=== PATIENT | male | born 1995 | race African-American/Black ===

== ENCOUNTER 2016-08-21 22:26 | Emergency (ER) | payer SELFPAY ==
[2016-08-22 03:40] LABS: BASOPHILS 0.3 %; BASOPHILS ABSOLUTE 0.03 10/3/uL (0.0-0.16); EOSINOPHILS 3.3 %; EOSINOPHILS ABSOLUTE 0.36 10/3/uL (0.0-0.53); HEMATOCRIT 40.7 % (40.0-51.0); HEMOGLOBIN 14.6 g/dL (13.6-17.8); IMMATURE GRANULOCYTES 0.2 %; IMMATURE GRANULOCYTES ABSOLUTE 0.02 10/3/uL (0.0-0.11); LYMPHOCYTES 34.7 %; LYMPHOCYTES ABSOLUTE 3.84 10/3/uL (0.67-4.30); MEAN CORPUS HGB CONC 35.9 g/dL (32.0-36.0); MEAN CORPUSCULAR HEMOGLOB 33.2 pg (26.0-34.0); MEAN CORPUSCULAR VOLUME 92.5 fL (80-100); MEAN PLATELET VOLUME 9.1 fL (9.2-13.0); MONOCYTES ABSOLUTE 1.11 10/3/uL (0.21-1.20); NEUTROPHILS 51.5 %; NEUTROPHILS ABSOLUTE 5.71 10/3/uL (2.02-8.40); PLATELET COUNT 262 10/3/uL (150-400); WHITE BLOOD CELLS 11.1 10/3/uL (4.5-10.5)
[2016-08-22 03:41] LABS: ER CBC TAT 0 Hrs 09 MinsNP; MANUAL DIFF NO %
[2016-08-22 03:50] LABS: ASCORBIC ACID (UR NOT ORDER) NEG (NEG); BILIRUBIN, URINE NEGATIVE (NEG); ER URINALYSIS TAT 0 Hrs 05 Mins; KETONE, URINE TRACE MG/DL (NEG); LEUKOCYTE ESTERASE(NOT OR NEG (NEG); NITRITE (URINE) NEG (NEG); WBC (NOT ORDERED) (RFLEX) 1 (0-5)
[2016-08-22 03:56] LABS: A/G RATIO 0.8 (0.7-1.9); ALBUMIN 3.9 G/DL (3.5-5.0); ALKALINE PHOSPHATASE 94 U/L (45-117); BUN (BLOOD UREA NITROGEN) 13 MG/DL (6-23); CALCIUM, SERUM 9.3 MG/DL (8.5-10.4); CHLORIDE, SERUM 104 MMOL/L (96-112); CO2 (CARBON DIOXIDE) 28 MMOL/L (24-34); CREATININE 1.09 MG/DL (0.70-1.30); GFR AFRICAN AMERICAN 110 ML/MIN (>=60); GFR NON AFRICAN AMERICAN 95 ML/MIN (>=60); GLOBULIN 4.8 G/DL (2.5-4.1); GLUCOSE, SERUM 95 MG/DL (60-99); POTASSIUM, SERUM 3.7 MMOL/L (3.5-5.3); SALICYLATE 1.9 MG/DL (-); SGOT(AST) 23 U/L (5-40); SGPT(ALT) 31 U/L (5-65); SODIUM, SERUM 141 MMOL/L (135-148); TOTAL BILIRUBIN 0.4 MG/DL (0-1.2); TOTAL PROTEIN 8.7 G/DL (6.0-8.5)
[2016-08-22 04:01] LABS: ALCOHOL < 10 MG/DL (0)
[2016-08-22 04:08] LABS: AMPHETAMINES (NOT ORD) POS (NEG); BARBITURATES (NOT ORDERED NEG (NEG); BENZODIAZEPINES (NOT ORD) NEG (NEG); CANNABINOIDS (THC) POS (NEG); COCAINE (NOT ORDERED) NEG (NEG); OPIATES NEG (NEG); PHENCYCLIDINE(PCP) NEG (NEG); TRICYCLICS NEG (NEG)
[2016-08-22 04:14] LABS: ACETAMINOPHEN LEVEL (TYLENOL) < 2.0 MCG/ML (10.0-20.0)
[2016-08-22] MEDS ORDERED: RISP1 PO (06:29)
[2016-08-22] MEDS ORDERED: BEN25 PO (06:30)
[2016-08-22] MEDS ORDERED: ZOL50 PO (06:31)
== END 2016-08-24 21:10 ==
LOC: ER 22:26
PROVIDERS: Nurse Practitioner Acute Care
DX: F20.9 Schizophrenia, unspecified (principal); F06.8 Other specified mental disorders due to known physiological condition; F12.90 Cannabis use, unspecified, uncomplicated; F15.90 Other stimulant use, unspecified, uncomplicated
CPT/HCPCS: 80053; 80305; 80307; 81001; 85025; 99285; A9270-GY; J3486